=== PATIENT | male | born 1935 | race Caucasian/White ===

== ENCOUNTER 2016-06-24 11:29 | Observation (INO) | payer OTHER ==
[~2016-06-24] VITALS: Ht 160 cm; Wt 81.5 kg
[~2016-06-24 11:29] MED LIST: GLIMEPIRIDE2 MG PO; MEDROL DOSEPAK4 MG PO; METOPROLOL SUCC50 MG PO; NAPROXEN500 MG PO; ULTRAM50 MG PO
[2016-06-24 12:08] LABS: HEMATOCRIT 45.4 % (38.0-50.0); MCH 30.9 PG (29.0-34.0); MCV 88.2 FL (86-99); MEAN PLAT.VOLUME 11.4 uM^3 (9.0-12.4); PLATELET COUNT 172 K/uL (156-360); RBC DIS.WIDTH-SD 41.1 % (39-53); RED BLOOD COUNT 5.15 M/uL (4.00-5.50); WHITE BLOOD COUNT 6.1 K/uL (4.1-10.2)
[2016-06-24 12:16] LABS: CHLORIDE 104 mEq/L (99-109); POTASSIUM 4.1 mEq/L (3.7-5.4); SODIUM 140 mEq/L (136-147)
[2016-06-24 12:18] LABS: GLUCOSE 126 mg/dL (70-99)
[2016-06-24 12:19] LABS: ANION GAP 9 MEQ/L (2-14)
[2016-06-24 12:22] LABS: GFR ESTIMATE (CALCULATED) > 59 mL/min/; UREA NITROGEN (BUN) 13 mg/dL (9-23)
[2016-06-24] MEDS ORDERED: DOXYCYCLINE HYC50 MG PO (14:24)
[2016-06-24] MEDS ORDERED: PIOGLITAZONE HC15 MG PO (14:26)
[2016-06-24] MEDS ORDERED: HYDROCHLOROTHIA25 MG PO (14:26)
[2016-06-24] MEDS ORDERED: QUINAPRIL HCL40 MG PO (14:26)
[2016-06-24] MEDS ORDERED: RESTASIS 01 DROP/0.4 BOTH EYES (14:27)
[2016-06-24] MEDS ORDERED: ROSUVASTATIN CA10 MG PO (14:27)
[2016-06-24] MEDS ORDERED: CINNAMON500 MG PO (14:31)
[2016-06-24] MEDS ORDERED: REFRESH TEARS15 ML BOTH EYES (14:34)
[2016-06-24 15:48] LABS: HDL CHOLESTEROL 31 MG/DL (Desirable>=40); LDL CHOLESTEROL 32 mg/dL (Desirable<100); NON-HDL CHOLESTEROL 67 mg/dL (Desirable<160); SAMPLE HEMOLYSIS CHECK 0; SAMPLE ICTERIC CHECK 0; SAMPLE LIPEMIA CHECK 0; TOTAL CHOLESTEROL 98 mg/dL (Desirable<200); TRIGLYCERIDES 174 MG/DL (Normal: <150)
[2016-06-24 17:24] VITALS: BP 131/68
[2016-06-24 19:15] VITALS: BP 132/65
[2016-06-24 19:26] LABS: Estimated Average Glucose 151 mg/dL (70-123); HEMOGLOBIN A1c (GLYCOHEMOGLOB) 6.9 % HGB (Below 5.7)
[2016-06-25 00:30] VITALS: BP 128/60
[2016-06-25 04:19] VITALS: BP 106/48
[2016-06-25 07:04] LABS: HEMATOCRIT 41.6 % (38.0-50.0); MCH 30.2 PG (29.0-34.0); MCHC 33.9 G/DL (30.0-36.0); MCV 89.1 FL (86-99); MEAN PLAT.VOLUME 11.7 uM^3 (9.0-12.4); PLATELET COUNT 160 K/uL (156-360); RBC DIS.WIDTH-CV 13.2 % (11.8-14.6); RBC DIS.WIDTH-SD 42.4 % (39-53); RED BLOOD COUNT 4.67 M/uL (4.00-5.50); WHITE BLOOD COUNT 5.6 K/uL (4.1-10.2)
[2016-06-25 07:28] LABS: ALKALINE PHOSPHATASE 40 IU/L (3-129); ANION GAP 10 MEQ/L (2-14); CHLORIDE 106 MEQ/L (99-109); GFR ESTIMATE (CALCULATED) > 59 mL/min/; GLUCOSE 134 mg/dL (70-99); POTASSIUM 3.7 MEQ/L (3.7-5.4); SAMPLE HEMOLYSIS CHECK 0; SAMPLE ICTERIC CHECK 0; SAMPLE LIPEMIA CHECK 0; SODIUM 141 MEQ/L (136-147); TOTAL BILIRUBIN 1.3 MG/DL (0.0-1.0); UREA NITROGEN (BUN) 15 mg/dL (9-23)
[2016-06-25 08:59] VITALS: BP 134/60
== END 2016-06-25 10:19 | disposition home or self-care (01) ==
LOC: EXP 11:29 → EME 11:29 → EDOF 14:40 → 5WEST 14:40
PROVIDERS: Nurse Practitioner Adult Health
DX: G45.9 Transient cerebral ischemic attack, unspecified (principal); E11.9 Type 2 diabetes mellitus without complications; I10 Essential (primary) hypertension; R51 Headache; Z86.73 Personal history of transient ischemic attack (TIA), and cerebral infarction without residual deficits; E78.5 Hyperlipidemia, unspecified
CPT/HCPCS: 70450; 70551; 71020; 80048; 80053; 80061; 83036; 85027; 93005; 93880; 99281; 99285; G0378

== ENCOUNTER 2017-07-05 08:03 | Emergency (ER) | payer OTHER ==
[~2017-07-05] VITALS: Ht 161.3 cm; Wt 79.3 kg
[~2017-07-05 08:03] MED LIST changes: +CINNAMON500 MG PO; +DOXYCYCLINE HYC50 MG PO; +HYDROCHLOROTHIA25 MG PO; +PIOGLITAZONE HC15 MG PO; +QUINAPRIL HCL40 MG PO; +REFRESH TEARS15 ML BOTH EYES; +RESTASIS 01 DROP/0.4 BOTH EYES; +ROSUVASTATIN CA10 MG PO
[2017-07-05 09:22] VITALS: BP 121/65
== END 2017-07-05 09:30 | disposition home or self-care (01) ==
LOC: EME 08:03
DX: R07.81 Pleurodynia (principal); W01.0XXA Fall on same level from slipping, tripping and stumbling without subsequent striking against object, initial encounter; Y93.K1 Activity, walking an animal; E11.9 Type 2 diabetes mellitus without complications; E78.5 Hyperlipidemia, unspecified; I10 Essential (primary) hypertension; Z86.73 Personal history of transient ischemic attack (TIA), and cerebral infarction without residual deficits; Z87.891 Personal history of nicotine dependence
CPT/HCPCS: 71046; 99281; 99284